=== PATIENT | female | born 1985 | race Caucasian/White ===

== ENCOUNTER 2024-02-29 20:30 | Emergency (ER) | payer MEDICAID, SELFPAY ==
[2024-02-29 20:31] VITALS: BMI 28.3
[2024-02-29 21:05] VITALS: BP 131/84; PULSE 102; RESP 17; TEMP 37.4; O2SAT 100
--- NOTE | 2024-02-29 21:17 | PD.EDRME ---
Rapid Medical Screening Exam [facility] Arrival date/time: 02/29/24 20:30 38F with no significant PMH Presents to ED with 1.5 week of UTI symptoms and several days of body aches and flank/back pain. Patient was started on Keflex yesterday. Chief Complaint: Urogenital-Female Vital signs: Vital Signs Temperature 99.3 F 02/29/24 21:05 Pulse Rate 102 H 02/29/24 21:05 Respiratory Rate 17 02/29/24 21:05 Blood Pressure 131/84 H 02/29/24 21:05 Pulse Oximetry (%) 100 02/29/24 21:05 Oxygen Delivery Method Room Air 02/29/24 21:05
[2024-02-29 21:40] LABS: Collection Type, Urine Clean Catch
[2024-02-29 21:41] LABS: Lactate (Lactic Acid) 0.5 mMol/L (0.4-2.0)
[2024-02-29 21:42] LABS: Basophils % (Auto) 0 % (0-2.5); Eosinophils # (Auto) 0.1 Thou/mm3 (0.0-0.5); Eosinophils % (Auto) 1 % (0-10); Hematocrit 42.2 % (36.0-46.0); Hemoglobin 14.4 g/dL (12.0-16.0); Immature Granulocytes % (Auto) 0 % (0-0); Immature Granulocytes Auto 0.03 Thou/mm3 (0.00-0.00); Lymphocytes # (Auto) 2.5 Thou/mm3 (1.0-4.8); Lymphocytes % (Auto) 26 % (10-50); Mean Corpuscular HGB Conc 34.1 g/dl (31.0-37.0); Mean Corpuscular Hemoglobin 31.8 pg (25.0-35.0); Mean Corpuscular Volume 93 fL (80-100); Monocytes # (Auto) 0.7 Thou/mm3 (0.0-0.8); Monocytes % (Auto) 7 % (0-12); Neutrophils # (Auto) 6.1 Thou/mm3 (1.8-7.7); Neutrophils % (Auto) 65 % (37-80); Nucleated Red Blood Cell % 0 /100 WBC (0); Platelet Count 220 Thou/mm3 (140-440); RDW Standard Deviation 42.7 fL (36.4-46.3); Red Blood Count 4.53 Miln/mm3 (4.00-5.20); White Blood Count 9.4 Thou/mm3 (3.6-11.0)
[2024-02-29 21:45] LABS: Bacteria,Urine Rare; Bilirubin,Urine 1+ (Negative); Blood,Urine Negative (Negative); Clarity,Urine Clear (Clear/Hazy); Color,Urine Drk-Yellow (Lt Yel-Yel); Glucose, Urine Negative (Negative); Ketones,Urine Negative (Negative); Leukocyte Esterase,Urine Positive (Negative); Nitrite,Urine Positive (Negative); PH,Urine 7.5 (5.0-7.0); Protein,Urine Negative (Neg - Trace); RBC,Urine 1 /hpf (0-3); Specific Gravity,Urine 1.014 (1.001-1.035); Squamous Epithelial Cell,Urine 3 /hpf (0-5); WBC,Urine 14 /hpf (0-5)
[2024-02-29 21:46] LABS: HCG Qualitative,Urine Negative
[2024-02-29 21:47] LABS: Culture Indicated,Urine Yes
[2024-02-29 22:13] LABS: Alanine Aminotransferase 23 U/L (10-49); Albumin, Serum 4.3 gm/dL (3.5-5.0); Albumin/Globulin Ratio 1.9 (1.2-2.2); Alkaline Phosphatase 63 U/L (46-116); Anion Gap 5 (7-16); Aspartate Amino Transferase 26 U/L (0-34); BUN/Creatinine Ratio 15 Ratio (12-20); Bilirubin,Total 0.5 mg/dL (0.3-1.2); Blood Urea Nitrogen 12 mg/dL (9-23); Calcium 9.5 mg/dL (8.3-10.6); Calcium (Corrected) 9.5 mg/dL (8.5-10.1); Carbon Dioxide 28.3 mMol/L (20.0-31.0); Chloride 106 mMol/L (98-107); Creatinine (Component) 0.8 mg/dL (0.6-1.3); Estimated Creatinine Clearance 89.2 mL/min (>60); Globulin 2.3 gm/dL (2.3-3.5); Glucose 94 mg/dL (74-106); Osmolality,Calculated 277 (275-295); Procalcitonin 0.06 ng/ml (0.0-0.49); Sodium 139 mMol/L (136-145); Total Protein 6.6 gm/dL (5.7-8.2); eGFR > 60 See Note
--- NOTE | 2024-02-29 23:18 | PD.EDFMALE ---
ED Female Urogenital RME/HPI General Chief complaint: Urogenital-Female Stated complaint: UTI SYMPTOMS Arrival date/time: 02/29/24 20:30 RME / HPI RME / HPI Narrative: 02/29/24 20:30 38F with no significant PMH Presents to ED with 1.5 week of UTI symptoms and several days of body aches and flank/back pain. Patient was started on Keflex yesterday. ----- Dr. Quezada?s Main ED Evaluation: Related Data Home Medications ?Medication ?Instructions ?Recorded ?Confirmed gabapentin 800 mg tablet 800 mg PO TID 05/21/23 Previous Rx's ?Medication ?Instructions ?Recorded medroxyprogesterone 10 mg tablet 10 mg PO QDAY #7 tabs 09/18/23 (Provera) benzonatate 100 mg capsule 100 mg PO TID #14 caps 10/30/23 ibuprofen 600 mg tablet 600 mg PO Q6H #30 tabs 10/30/23 Allergies Allergy/AdvReac Type Severity Reaction Status Date / Time Sulfa (Sulfonamide Allergy Severe Hives Verified 10/30/23 14:18 Antibiotics) Review of Systems Review of Systems Systems Reviewed: All systems reviewed, normal except as documented Past Medical History Past Medical History NEUROLOGIC: Positive Neurological Disorders and Migraine CARDIAC: Negative Cardiac Disorders or Congestive Heart Failure RESPIRATORY: Negative Chronic Obstructive Pulmonary Disease (COPD) GASTROINTESTINAL: Positive Gastrointestinal Disorders and Obesity GENITOURINARY: Negative Genitourinary Disorders or Renal Disease REPRODUCTIVE: Positive Previous Pregnancies MUSCULOSKELETAL: Negative Musculoskeletal Disorders ENDOCRINE: Negative Endocrine Disorders, Diabetes Mellitus Type 1 or Diabetes Mellitus Type 2 HEMATOLOGIC: Negative Blood Disorders PSYCHO/SOCIAL: Positive Recreational Drug Use OTHER HISTORY: Positive Hospitalization (acute kidney problems), Shingles and Chicken Pox; Negative Blood Transfusions or Cancer Family History FAMILY HISTORY: Positive Family Cancer; Negative Family Psychiatric Problems, Family Respiratory Disorders, Family Cardiac Disorders, Family Gastrointestinal Problems, Family Surgery or Family Anesthesia Reaction Social History SMOKING STATUS: Current every day smoker ED Exam Narrative Physical exam: GENERAL APPEARANCE: alert and oriented x 4, well-developed, well-nourished, no acute distress VITALS: All vitals were reviewed and the pulse ox is 100% on room air, which is normal according to my interpretation. HEENT: Normocephalic, atraumatic; pupils equal, round, reactive to light; EOMI; mucous membranes pink, moist; oropharynx clear NECK: Supple LUNGS: CTABL; no wheezes, no rales, no rhonchi HEART: Regular rate, regular rhythm; normal S1, S2; no murmurs ABDOMEN: non distended; normal BS; soft, no tenderness, no guarding, no rebound; no masses, no organomegaly, no hernia BACK: no CVA tenderness EXTREMITIES: atraumatic; no edema NEUROLOGIC: awake; alert and oriented x4; cranial nerves II-XII grossly intact; no focal sensory or motor deficits PSYCHIATRIC: appropriate mood and affect SKIN: warm, dry, normal color; no rashes Course Quality Measures none Orders Category Date Time Status CBC Stat Lab 02/29/24 21:25 Completed CMP [Comprehensive Metabolic Panel] Stat Lab 02/29/24 21:25 Completed HCG Qualitative,Urine Stat Lab 02/29/24 21:30 Completed Lactate (Lactic Acid) Stat Lab 02/29/24 21:25 Completed Procalcitonin Stat Lab 02/29/24 21:25 Completed Urinalysis, C/S if Indicated Stat Lab 02/29/24 21:30 Completed Urine Culture Stat Lab 02/29/24 21:30 Received Vital Signs Vital signs: Vital Signs Temperature 99.3 F 02/29/24 21:05 Pulse Rate 102 H 02/29/24 21:05 Respiratory Rate 17 02/29/24 21:05 Blood Pressure 131/84 H 02/29/24 21:05 Pulse Oximetry (%) 100 02/29/24 21:05 Oxygen Delivery Method Room Air 02/29/24 21:05 Urogenital - Female Patient data External records reviewed:: [facility] previous records (Per chart review, patient was seen here on 10/30/23 for COVID.) Clinical information provided by:: patient Social determinants that could affect healthcare access:: none Patient has the following chronic illnesses:: none How is presenting disease/condition affected by chronic disease/condition?: no chronic disease Evaluation data The following diagnostics were reviewed and interpreted by me:: lab results Lab and/or radiology exams considered but not ordered:: none Interpretation Summary: CBC is normal, CMP is normal, Lactate is normal, Procalcitonin is normal, UA is positive, according to my interpretation. Medications / Prescriptions Medications or Prescriptions considered but not ordered:: none Medication administrations:: see above, if any Discharge Plan Prescriptions/Referrals Prescriptions/Med Rec: No Action gabapentin 800 mg tablet 800 mg PO TID Patient Comments: take 1 tablet by mouth three times a day medroxyprogesterone [Provera] 10 mg tablet 10 mg PO QDAY Qty: 7 0RF benzonatate 100 mg capsule 100 mg PO TID Qty: 14 0RF ibuprofen 600 mg tablet 600 mg PO Q6H Qty: 30 0RF Referrals: Orsetes Wilson MD [Primary Care Provider] - In 1 week Patient/Caregiver Discharge Instructions Print Language: Grenadian
--- NOTE | 2024-03-01 00:09 | EDNOTE_ITS ---
ED Female Urogenital RME/HPI General Chief complaint: Urogenital-Female Stated complaint: UTI SYMPTOMS Time Seen by Provider: 03/01/24 00:21 Arrival date/time: 02/29/24 20:30 38F with no significant PMH Presents to ED with 1.5 week of UTI symptoms and several days of body aches and flank/back pain. Patient was started on Keflex yesterday. Limitations: no limitations Related Data Home Medications ?Medication ?Instructions ?Recorded ?Confirmed gabapentin 800 mg tablet 800 mg PO TID 05/21/23 Previous Rx's ?Medication ?Instructions ?Recorded medroxyprogesterone 10 mg tablet 10 mg PO QDAY #7 tabs 09/18/23 (Provera) benzonatate 100 mg capsule 100 mg PO TID #14 caps 10/30/23 ibuprofen 600 mg tablet 600 mg PO Q6H #30 tabs 10/30/23 Allergies Allergy/AdvReac Type Severity Reaction Status Date / Time Sulfa (Sulfonamide Allergy Severe Hives Verified 10/30/23 14:18 Antibiotics) Review of Systems Review of Systems Systems Reviewed: All systems reviewed, normal except as documented Constitutional Constitutional: Reports system reviewed and no additional complaints, except as documented, Reports as per HPI, Reports body ache(s), Denies fever(s) and Denies headache(s) ENT Ears, Nose, Mouth, and Throat: Denies disequilibrium and Denies headache(s) Cardiovascular Cardiovascular: Reports system reviewed and no additional complaints, except as documented, Denies chest pain and Denies dyspnea Respiratory Respiratory: Reports system reviewed and no additional complaints, except as documented, Denies cough and Denies dyspnea Gastrointestinal Gastrointestinal: Reports system reviewed and no additional complaints, except as documented, Denies abdominal pain, Denies nausea and Denies vomiting Genitourinary Genitourinary: Reports as per HPI, Reports dysuria and Reports flank pain Neurologic Neurologic: Reports system reviewed and no additional complaints, except as documented, Denies confusion, Denies disequilibrium and Denies headache(s) Psychiatric Psychiatric: Denies confusion Past Medical History Past Medical History NEUROLOGIC: Positive Neurological Disorders and Migraine CARDIAC: Negative Cardiac Disorders or Congestive Heart Failure RESPIRATORY: Negative Chronic Obstructive Pulmonary Disease (COPD) GASTROINTESTINAL: Positive Gastrointestinal Disorders and Obesity GENITOURINARY: Negative Genitourinary Disorders or Renal Disease REPRODUCTIVE: Positive Previous Pregnancies MUSCULOSKELETAL: Negative Musculoskeletal Disorders ENDOCRINE: Negative Endocrine Disorders, Diabetes Mellitus Type 1 or Diabetes Mellitus Type 2 HEMATOLOGIC: Negative Blood Disorders PSYCHO/SOCIAL: Positive Recreational Drug Use OTHER HISTORY: Positive Hospitalization (acute kidney problems), Shingles and Chicken Pox; Negative Blood Transfusions or Cancer Family History FAMILY HISTORY: Positive Family Cancer; Negative Family Psychiatric Problems, Family Respiratory Disorders, Family Cardiac Disorders, Family Gastrointestinal Problems, Family Surgery or Family Anesthesia Reaction Social History SMOKING STATUS: Current every day smoker ED Exam General Limitations: Present no limitations General appearance: Present alert and in no apparent distress Head Head exam: Present atraumatic Eye Eye exam: Present normal appearance, PERRL and EOMI ENT ENT exam: Present normal exam, normal oropharynx and mucous membranes moist Neck Neck exam: Present normal inspection, full ROM and trachea midline Chest Chest inspection: Present normal inspection and symmetric chest wall rise Respiratory Respiratory exam: Present normal lung sounds bilaterally Cardiovascular Cardiovascular exam: Present regular rate, normal rhythm and normal heart sounds Abdominal Exam Abdominal exam: Present soft and normal bowel sounds Extremities Exam Extremities exam: Present normal inspection and full ROM Back Exam Back exam: Present normal inspection and full ROM Neurological Exam Neurological exam: Present alert, oriented X3 and CN II-XII intact Psychiatric Psychiatric exam: Present normal affect and normal mood Skin Skin exam: Present warm, dry, intact and normal color Course Quality Measures none Orders Category Date Time Status CBC Stat Lab 02/29/24 21:25 Completed CMP [Comprehensive Metabolic Panel] Stat Lab 02/29/24 21:25 Completed HCG Qualitative,Urine Stat Lab 02/29/24 21:30 Completed Lactate (Lactic Acid) Stat Lab 02/29/24 21:25 Completed Procalcitonin Stat Lab 02/29/24 21:25 Completed Urinalysis, C/S if Indicated Stat Lab 02/29/24 21:30 Completed Urine Culture Stat Lab 02/29/24 21:30 Received Naproxen [Naprosyn] Med 03/01/24 00:08 Discontinued 500 mg PO X1 ONE cefTRIAXone [Rocephin] 1,000 mg Med 03/01/24 00:08 Discontinued Lidocaine 1% 20 ml [Xylocaine 1% 20 ML] 2.1 ml IM X1 Vital Signs Vital signs: Vital Signs Temperature 99.3 F 02/29/24 21:05 Pulse Rate 102 H 02/29/24 21:05 Respiratory Rate 17 02/29/24 21:05 Blood Pressure 131/84 H 02/29/24 21:05 Pulse Oximetry (%) 100 02/29/24 21:05 Oxygen Delivery Method Room Air 02/29/24 21:05 O2 at 100% on RA and WNLs Urogenital - Female MDM Narrative MDM Narrative:: 38F with no significant PMH Presents to ED with 1.5 week of UTI symptoms and several days of body aches and flank/back pain. Patient was started on Keflex yesterday. Physical exam reveals no flank tenderness. Patient is afebrile, calm, and alert. No leukocytosis. Normal procal/lactate. UA suggests mild UTI. Will reinforce with Rocephin. Patient data External records reviewed:: [facility] previous records Clinical information provided by:: patient Social determinants that could affect healthcare access:: none Patient has the following chronic illnesses:: none How is presenting disease/condition affected by chronic disease/condition?: no chronic disease Evaluation data The following diagnostics were reviewed and interpreted by me:: lab results Lab and/or radiology exams considered but not ordered:: ordered Interpretation Summary: above Medications / Prescriptions Medications or Prescriptions considered but not ordered:: ordered Medication administrations:: Medication Administration History Discontinued Medications Ceftriaxone Sodium 1,000 mg/ (Lidocaine HCl 2.1 ml) 0 mg IM X1 ONE Stop: 03/01/24 00:09 Last Admin: 03/01/24 00:21 Dose: 2.1 mg Documented By: DLEANEY Naproxen (Naproxen 250 Mg Tablet) 500 mg PO X1 ONE Stop: 03/01/24 00:09 Last Admin: 03/01/24 00:20 Dose: 500 mg Documented By: DELANEY above Consultations Consultation(s) initiated? (list below): No Diagnosis Urogenital Female Differential Diagnosis: urinary tract infection, bacterial vaginosis, trichomoniasis, cervicitis, ovarian cyst, vaginitis, ruptured ovarian cyst, cyst of Bartholin's gland, cystitis and dysmenorrhea Most likely diagnosis given after review of the tests above:: UTI Admission Indicated Admission indicated?: not indicated Admission Request Was there a request for admission?: No Disposition Plan Disposition Plan: Discharge Discharge Attestation Discharge Attestation: The patient and all family members were given an opportunity to ask questions and understood the discharge instructions. Discharge instructions specifically effects, indications for sooner follow up or return to the emergency department, and the expected course of current diagnosis. Patient condition: Stable Discharge Plan Plan Patient Disposition: HOME (Self Care) Disposition Comment: Stable Prescriptions/Referrals Prescriptions/Med Rec: No Action gabapentin 800 mg tablet 800 mg PO TID Patient Comments: take 1 tablet by mouth three times a day medroxyprogesterone [Provera] 10 mg tablet 10 mg PO QDAY Qty: 7 0RF benzonatate 100 mg capsule 100 mg PO TID Qty: 14 0RF ibuprofen 600 mg tablet 600 mg PO Q6H Qty: 30 0RF Referrals: Orestes Wilson MD [Primary Care Provider] - In 1 week Problem List Clinical Impression: UTI (urinary tract infection) Patient/Caregiver Discharge Instructions Additional Instructions: Please follow-up with PCP within 24-48 hours and return immediately if symptoms worsen. Finish Keflex. 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 Quezada
[2024-03-01] MEDS: NAPROXEN 250 MG TABLET 500 MG PO (00:20)
[2024-03-01] MEDS: cefTRIAXone 1,000 MG, LIDOCAINE 1% 20 ML 2.1 ML IM (00:21)
[2024-03-01 00:26] VITALS: BP 128/79; PULSE 99; RESP 18; TEMP 37.2; O2SAT 99
== END 2024-03-01 00:26 | disposition home or self-care (01) ==
PROVIDERS: Physician Assistant; Emergency Provider Emergency Medicine; PCP Family Medicine
DX: N39.0 Urinary tract infection, site not specified (principal)
CPT/HCPCS: 36415; 80053; 81001; 81025; 83605; 84145; 85025; 87086; 96372; 99283; J0696; J3490; A9270

== ENCOUNTER 2024-08-14 13:11 | Emergency (ER) | payer MEDICAID, SELFPAY ==
[2024-08-14 13:27] VITALS: BP 103/71; PULSE 118; RESP 20; TEMP 37.2; O2SAT 99
--- NOTE | 2024-08-14 13:32 | PD.EDRME ---
Rapid Medical Screening Exam RME Arrival date/time: 08/14/24 13:11 39-year-old female with no known medical history presents to the emergency room with a chief complaint of right lower and left lower quadrant abdominal pain and tenderness, nausea, vomiting x 2 days I have greeted and performed a focused initial assessment of this patient. A comprehensive ED assessment and evaluation of the patient, analysis of all test results, and completion of the medical decision making process will be conducted by additional ED providers. Chief Complaint: Nausea/Vomiting/Diarrhea Vital signs: Vital Signs Temperature 98.9 F 08/14/24 13:27 Pulse Rate 118 H 08/14/24 13:27 Respiratory Rate 20 08/14/24 13:27 Blood Pressure 103/71 08/14/24 13:27 Pulse Oximetry (%) 99 08/14/24 13:27 Oxygen Delivery Method Room Air 08/14/24 13:27 Vital signs reviewed by provider: Yes
[2024-08-14] MEDS: ONDANSETRON ODT 4 MG TABRAP PO (13:38)
[2024-08-14 14:23] LABS: Basophils % (Auto) 0 % (0-2.5); Eosinophils % (Auto) 0 % (0-10); Hematocrit 44.4 % (36.0-46.0); Hemoglobin 15.8 g/dL (12.0-16.0); Immature Granulocytes % (Auto) 0 % (0-0); Immature Granulocytes Auto 0.03 Thou/mm3 (0.00-0.00); Lymphocytes # (Auto) 0.5 Thou/mm3 (1.0-4.8); Lymphocytes % (Auto) 5 % (10-50); Mean Corpuscular HGB Conc 35.6 g/dl (31.0-37.0); Mean Corpuscular Hemoglobin 33.3 pg (25.0-35.0); Mean Corpuscular Volume 94 fL (80-100); Monocytes # (Auto) 0.2 Thou/mm3 (0.0-0.8); Monocytes % (Auto) 2 % (0-12); Neutrophils % (Auto) 94 % (37-80); Nucleated Red Blood Cell % 0 /100 WBC (0); Platelet Count 184 Thou/mm3 (140-440); RDW Standard Deviation 41.8 fL (36.4-46.3); Red Blood Count 4.74 Miln/mm3 (4.00-5.20); White Blood Count 10.7 Thou/mm3 (3.6-11.0)
[2024-08-14 14:31] LABS: Alanine Aminotransferase 20 U/L (10-49); Albumin, Serum 4.5 gm/dL (3.5-5.0); Albumin/Globulin Ratio 1.9 (1.2-2.2); Alkaline Phosphatase 43 U/L (46-116); Anion Gap 9 (7-16); Aspartate Amino Transferase 28 U/L (0-34); BUN/Creatinine Ratio 26 Ratio (12-20); Bilirubin,Total 1.1 mg/dL (0.3-1.2); Blood Urea Nitrogen 21 mg/dL (9-23); Calcium 8.7 mg/dL (8.3-10.6); Calcium (Corrected) 8.7 mg/dL (8.5-10.1); Carbon Dioxide 25.3 mMol/L (20.0-31.0); Chloride 107 mMol/L (98-107); Creatinine (Component) 0.8 mg/dL (0.6-1.3); Estimated Creatinine Clearance 85.4 mL/min (>60); Globulin 2.4 gm/dL (2.3-3.5); Glucose 126 mg/dL (74-106); Lipase 29 U/L (12-53); Osmolality,Calculated 286 (275-295); Sodium 141 mMol/L (136-145); Total Protein 6.9 gm/dL (5.7-8.2); eGFR > 60 See Note
[2024-08-14 15:35] LABS: Collection Type, Urine Clean Catch
[2024-08-14 15:51] LABS: Bilirubin,Urine Negative (Negative); Blood,Urine 1+ (Negative); Clarity,Urine Clear (Clear/Hazy); Color,Urine Yellow (Lt Yel-Yel); Glucose, Urine Negative (Negative); Ketones,Urine Trace (Negative); Leukocyte Esterase,Urine Positive (Negative); Nitrite,Urine Negative (Negative); Protein,Urine Trace (Neg - Trace); RBC,Urine 5 /hpf (0-3); Specific Gravity,Urine 1.037 (1.001-1.035); Squamous Epithelial Cell,Urine 5 /hpf (0-5); Urobilinogen,Urine Negative mg/dL (0.0-1.0); WBC,Urine 3 /hpf (0-5)
[2024-08-14 15:56] LABS: HCG Qualitative,Urine Negative
--- NOTE | 2024-08-14 18:05 | PC.NURSE ---
Called patient did not answer. NA X1@ 18:00
--- NOTE | 2024-08-14 18:09 | PC.NURSE ---
PT CALLED FROM [facility] AND NO ANSWER. 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
== END 2024-08-14 18:10 | disposition left against medical advice (07) ==
PROVIDERS: Nurse Practitioner Family; Emergency Provider Emergency Medicine; PCP Family Medicine
DX: R10.32 Left lower quadrant pain (principal); R11.2 Nausea with vomiting, unspecified; R19.7 Diarrhea, unspecified; Z53.29 Procedure and treatment not carried out because of patient's decision for other reasons
CPT/HCPCS: 36415; 80053; 81001; 81025; 83690; 85025; 87086; 99284; Q0162

== ENCOUNTER 2024-10-31 10:44 | Outpatient (AMB) | payer MEDICAID, SELFPAY ==
[2024-10-31 11:23] VITALS: BP 112/74; PULSE 66; RESP 17; TEMP 37; O2SAT 98; BMI 23.3
--- NOTE | 2024-10-31 11:23 | AMB.GYNCLNOT ---
Vital Signs 10/31/24 11:23 Height 1.65 m Height Method Stated Weight 63.503 kg Weight Measurement Method Standing Scale BMI 23.3 BP 112/74 Blood Pressure Source Automatic Cuff Blood Pressure Location Right Upper Arm Position Sitting Respiration 17 Pulse 66 Pulse Source Monitor Temp 98.6 F Temp Source Temporal Artery Scan Pulse Oximetry (%) 98 Oxygen Delivery Method Room Air Allergies/Home Meds Allergies & Medications Allergies Sulfa (Sulfonamide Antibiotics) Allergy (Severe, Verified 10/31/24 11:24) Hives Medication Reconciliation gabapentin 800 mg tablet 800 mg PO TID 05/21/23 [History Confirmed 10/31/24] medroxyprogesterone 10 mg tablet (Provera) 10 mg PO QDAY #7 tabs 09/18/23 [Rx Confirmed 10/31/24] benzonatate 100 mg capsule 100 mg PO TID #14 caps 10/30/23 [Rx Confirmed 10/31/24] ibuprofen 600 mg tablet 600 mg PO Q6H #30 tabs 10/30/23 [Rx Confirmed 10/31/24] amoxicillin 875 mg-potassium clavulanate 125 mg tablet 1 tab PO BID 7 days #14 tabs 10/31/24 [Rx] Intake Visit Data Collection New Patient or Established: Established Patient (seen at [facility] within 3 years) Reason for Visit:: REFERRAL Seen by Clinical Staff ONLY (RN/MA): No Legal Word Processor Required: No Do You Feel Safe at Home: Yes Authorities Contacted: N/A PCP or OBGYN visit in last 3 months: Yes Date of Last PCP or OBGYN visit: 08/14/24 Hx Now: No Are you currently on any form of Control: Yes Pain Present Currently: No Pain Scale Used: Gipson-Gomez/Numerical Pain scale:: 0 Smoking Status Smoking Status: Current every day smoker Cessation Counseling Provided: TRICE was advised that quitting smoking is the single most important factor to protect the health of themselves and their family. Discussed the benefits of quitting smoking with patient. Encouraged patient to quit smoking and provided Cessation assistance materials and resources. 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 1. Little interest or pleasure in doing things: not at all 2. Feeling down, depressed, or hopeless: not at all Total score: 0 PHQ-9 3. Trouble falling or staying asleep, or sleeping too much: Not at all 4. Feeling tired or having little energy: Not at all 5. Poor appetite or overeating: Not at all 6. Feeling bad about yourself - or that you are a failure or have let yourself or your family down: Not at all 7. Trouble concentrating on things, such as reading the newspaper or watching television: Not at all 8. Moving or speaking so slowly that other people could have noticed? - Or the opposite - being so fidgety or restless that you have been moving around a lot more than usual: not at all 9. Thoughts that you would be better off or of hurting yourself in some way: Not at all Total score: 0 If you checked off any problems, how difficult have these problems made it for you to do your work, take care of things at home, or get along with other people?: not difficult at all Source: Developed by Drs. Beto Simmons, Imani Mcwilliams, Chaka Casper and colleagues, with an educational cindi from [employer]. Depression screen completed yes Social History Living Situation History Marital Status: Unknown Lives With: Family Housing: House Tobacco History Smoking Status: Current every day smoker Second Hand Smoke Exposure: No Alcohol History Alcohol Intake: Former Domestic Abuse History Do You Feel Safe at Home: Yes History of Present Illness HPI Narrative Trice Grigsby is a 39-year-old female presenting for an endometriosis consultation, referred by [facility]. She reports severe uterine cramping and heavy menstrual bleeding for the past 3-4 years. The patient describes her pain as feeling like contractions, stating it's super bad and feels like she's having a baby. This pain has been present for more than 5 years but has worsened in the last 3-4 years. Prior to treatment, she experienced heavy menstrual bleeding, describing it as gushing with large clots, lasting 9-10 days. Trice has tried various treatments including control, which helped reduce bleeding but did not eliminate it entirely, and Depo-Provera injections, which stopped her menstrual bleeding but did not alleviate the cramping. The patient is [id number], with all five children delivered vaginally. She denies any previous uterine surgeries. Triec expresses concern about the impact of her symptoms on her daily life, mentioning she has young children and can't afford significant downtime. Recently, Trice was prescribed letrozole to induce menopause, but she has not started it, preferring to seek a second opinion first. She also mentions occasionally experiencing a burning sensation when urinating, along with an unusual odor. Her medical history includes endometriosis with worsening symptoms over the last three to four years, and a borderline urinary tract infection diagnosed during the current visit. Social history reveals she has a boyfriend and young children at home. Review of systems is positive for severe pain, heavy menstrual bleeding (though not currently), large blood clots, severe uterine cramping, and pelvic pain. Review of Systems Review of Systems Systems Reviewed: All systems reviewed, normal except as documented Exam General General Appearance: alert, in no apparent distress and healthy appearing Head Head exam: atraumatic Neck Neck exam: Present normal inspection and trachea midline Chest Chest inspection: Present normal inspection and symmetric chest wall rise External exam: Present normal external exam; Absent tenderness Neuro Neurological exam: Present oriented X3 Psych Psychiatric exam: Present normal affect and normal mood Office Procedures OB Clinic LOC & Office Proc's Nursing/Assessment Patient Status: Established Patient OB Clinic Nursing Assessment: Medication Reconciliation, Update PMH in EMR and Vital Signs OB Clinic Coordination of Care: Complex Care and Chronic Disease 1-5, Consent,records obtained, informed consent, Education Simp Pt/Fam, Results/Orders obtained and Staff clarify orders Established Patient Charge Established Patient Point Assignment: 90 Established Patient Point Charge: EP Level 3 (80-115) Assessment & Plan Diagnosis / Problem List (1) Pelvic and perineal pain: Status: Acute (2) Endometriosis: Status: Acute (3) Abnormal uterine and vaginal bleeding, unspecified: Status: Acute Plan Endometriosis: - Reviewed patient's 5-year history of endometriosis with worsening symptoms. - Noted severe uterine cramping, heavy menstrual bleeding lasting 9-10 days with large clots, and persistent pain despite current treatments. - Plan to obtain and review recent ultrasound results from [facility]. - Provided information on Lupron injections and alternative treatments. - Discussed potential treatment options including Lupron injections and laparoscopic surgery with endometrial ablation. - Recommended combination approach: 1-2 months of Lupron, followed by surgery, then continue Lupron to complete 2-year course. - Scheduled follow-up in 2 weeks to review options and make decision. - Discussed risks, benefits, and alternatives of proposed treatments. Urinary Tract Infection (UTI): - Noted patient reports of intermittent urinary odor and burning sensation. - Reviewed urinalysis showing borderline infection. - Prescribed low-dose antibiotic course. - Sent prescription to [facility] pharmacy. - Advised patient to monitor for correlation between diet and urinary symptoms. - Recommended increased fluid intake.
== END 2024-10-31 11:38 | disposition home or self-care (01) ==
LOC: HODSOBC 10:44
PROVIDERS: PCP Family Medicine; Referring Provider Family Medicine; Supervising Provider Obstetrics & Gynecology; Visit Provider Obstetrics & Gynecology
DX: N80.9 Endometriosis, unspecified (principal); N93.9 Abnormal uterine and vaginal bleeding, unspecified; N39.0 Urinary tract infection, site not specified
CPT/HCPCS: 99213; G0463

== ENCOUNTER 2025-03-23 12:35 | Emergency (ER) | payer MEDICAID, SELFPAY ==
[2025-03-23 13:39] VITALS: BP 128/85; PULSE 72; RESP 18; TEMP 36.8; O2SAT 100; BMI 27.1
--- NOTE | 2025-03-23 13:49 | PD.EDURI ---
Upper Respiratory Inf. RME/HPI General Chief Complaint: Flu Like Symptoms Stated Complaint: FLU A +, BILATERAL FLANK PAIN, FEVERS X 5DAYS Time Seen by Provider: 03/23/25 13:00 Arrival date/time: 03/23/25 12:35 This is a 39-year-old female that comes into the emergency room with complaints of being positive for influenza A. Patient states she still has fevers and she is not does not have much of an appetite and not eating and drinking as much as she usually does. Patient is also complaining of bilateral back pain patient also complains of urinary symptoms such as dysuria. Related Data Home Medications ?Medication ?Instructions ?Recorded ?Confirmed gabapentin 800 mg tablet 800 mg PO TID 05/21/23 10/31/24 Previous Rx's ?Medication ?Instructions ?Recorded medroxyprogesterone 10 mg tablet 10 mg PO QDAY #7 tabs 09/18/23 (Provera) benzonatate 100 mg capsule 100 mg PO TID #14 caps 10/30/23 ibuprofen 600 mg tablet 600 mg PO Q6H #30 tabs 10/30/23 ibuprofen 800 mg tablet 800 mg PO Q6H PRN pain #14 tabs 03/23/25 Allergies Allergy/AdvReac Type Severity Reaction Status Date / Time Sulfa (Sulfonamide Allergy Severe Hives Verified 04/02/25 13:38 Antibiotics) Review of Systems Review of Systems Systems Reviewed: All systems reviewed, normal except as documented Past Medical History Past Medical History NEUROLOGIC: Positive Neurological Disorders and Migraine CARDIAC: Negative Cardiac Disorders or Congestive Heart Failure RESPIRATORY: Negative Chronic Obstructive Pulmonary Disease (COPD) GASTROINTESTINAL: Positive Gastrointestinal Disorders and Obesity GENITOURINARY: Negative Genitourinary Disorders or Renal Disease REPRODUCTIVE: Positive Previous Pregnancies MUSCULOSKELETAL: Negative Musculoskeletal Disorders ENDOCRINE: Negative Endocrine Disorders, Diabetes Mellitus Type 1 or Diabetes Mellitus Type 2 HEMATOLOGIC: Negative Blood Disorders PSYCHO/SOCIAL: Positive Recreational Drug Use OTHER HISTORY: Positive Hospitalization (acute kidney problems), Shingles and Chicken Pox; Negative Blood Transfusions or Cancer Family History FAMILY HISTORY: Positive Family Cancer; Negative Family Psychiatric Problems, Family Respiratory Disorders, Family Cardiac Disorders, Family Gastrointestinal Problems, Family Surgery or Family Anesthesia Reaction Social History SMOKING STATUS: Current every day smoker ED Exam Narrative Physical exam: VITAL SIGNS: Reviewed. GENERAL APPEARANCE: Alert and interactive, follows commands, no acute distress HEAD AND FACE: Non-traumatic. ENT: PERRL, conjuctiva pink and clear, eyelid no trauma, Mucous membrane moist. NECK: Supple, nontender, no nuchal rigidity. CHEST: No tenderness, no crepitus, no paradoxical movement, no retractions. LUNGS: breathing even and unlabored HEART: Regular rate, cap refill less than 2 seconds ABDOMEN: Soft, nondistended, no guarding, nontender NEUROLOGICAL: Gross motor function intact sensory function intact, Appropriate for age. MUSCULOSKELETAL: low back nontender, full range of motion. EXTREMITIES: No redness no swelling no skin breakdown on bilateral foot and leg. Distal neurovascular status intact bilateral foot SKIN: Color pink, dry Course Quality Measures none Orders Category Date Time Status HCG Qualitative,Urine Stat Lab 03/23/25 14:35 Completed Urinalysis, C/S if Indicated Stat Lab 03/23/25 14:35 Completed Urine Culture Stat Lab 03/23/25 14:35 Completed Acetaminophen Tab [Tylenol ES Tab] Med 03/23/25 15:19 Discontinued 1,000 mg PO X1 ONE Ketorolac Inj [Toradol Inj] Med 03/23/25 17:06 Discontinued 60 mg IM X1 ONE Metoclopramide [Reglan] Med 03/23/25 17:06 Discontinued 10 mg PO X1 ONE Ondansetron Odt [Zofran Odt] Med 03/23/25 15:20 Discontinued 4 mg PO X1 ONE cefTRIAXone [Rocephin] 1,000 mg Med 03/23/25 17:06 Discontinued Lidocaine 1% Pf Vial 5ml [Xylocaine 1% Pf 5 ml] 2.1 ml IM X1 Vital Signs Vital signs: Vital Signs Temperature 98.2 F 03/23/25 13:39 Pulse Rate 72 03/23/25 13:39 Respiratory Rate 18 03/23/25 13:39 Blood Pressure 128/85 H 03/23/25 13:39 Pulse Oximetry (%) 100 03/23/25 13:39 Oxygen Delivery Method Room Air 03/23/25 13:39 Upper Respiratory Infection MDM Narrative MDM Narrative:: Patient complaining of urinary symptoms along with bodyaches. Patient has nitrites in urine patient has white blood cells in urine but does not have leukocyte esterase. Will treat for UTI and send for urine culture. Patient given a shot of Rocephin. Will give patient also shot of Toradol with some Reglan. Patient continues to have body aches. I will send patient home with antibiotics and have patient follow-up with primary provider in 1 to 2 days. Dragon dictation: Although this document has been carefully reviewed, there may still be some phonetic and other typographical errors. These errors are purely grammatical due to imperfections in the software program and should not be construed in any way to compromise the substance of the patient's medical care during this visit. Patient data External records reviewed:: [facility] previous records Clinical information provided by:: patient Social determinants that could affect healthcare access:: none Patient has the following chronic illnesses:: see note How is presenting disease/condition affected by chronic disease/condition?: no chronic disease Evaluation data The following diagnostics were reviewed and interpreted by me:: lab results Lab and/or radiology exams considered but not ordered:: see note Interpretation Summary: see note Medications / Prescriptions Medications or Prescriptions considered but not ordered:: see note Medication administrations:: Medication Administration History Discontinued Medications Acetaminophen (Acetaminophen 500 Mg Tablet) 1,000 mg PO X1 ONE Stop: 03/23/25 15:20 Last Admin: 03/23/25 16:29 Dose: 1,000 mg Documented By: RAVINDRA Comments: med brought by pharmacy Ceftriaxone Sodium 1,000 mg/ (Lidocaine HCl 2.1 ml) 0 mg IM X1 ONE Stop: 03/23/25 17:07 Last Admin: 03/23/25 17:21 Dose: 1,000 mg Documented By: RAVINDRA Ketorolac Tromethamine (Ketorolac Inj 60 Mg/2 Ml Vial) 60 mg IM X1 ONE Stop: 03/23/25 17:07 Last Admin: 03/23/25 17:20 Dose: 60 mg Documented By: RAVINDRA Metoclopramide HCl (Metoclopramide 5 Mg Tablet) 10 mg PO X1 ONE Stop: 03/23/25 17:07 Last Admin: 03/23/25 17:19 Dose: 10 mg Documented By: RAVINDRA Ondansetron HCl (Ondansetron Odt 4 Mg Tabrap) 4 mg PO X1 ONE; Protocol Stop: 03/23/25 15:21 Last Admin: 03/23/25 16:28 Dose: 4 mg Documented By: RAVINDRA Comments: med brought by pharmacy see mar Consultations Consultation(s) initiated? (list below): No Diagnosis Upper Respiratory Differential Diagnosis: upper respiratory infection, sinusitis, viral infection and other (uti) Most likely diagnosis given after review of the tests above:: see note Admission Indicated Admission indicated?: not indicated Admission Request Was there a request for admission?: No Disposition Plan Disposition Plan: Discharge Discharge Attestation Discharge Attestation: The patient and all family members were given an opportunity to ask questions and understood the discharge instructions. Discharge instructions specifically effects, indications for sooner follow up or return to the emergency department, and the expected course of current diagnosis. Patient condition: Stable Discharge Plan Plan Patient Disposition: HOME (Self Care) Patient condition on transfer: Stable Prescriptions/Referrals Prescriptions/Med Rec: New ibuprofen 800 mg tablet 800 mg PO Q6H PRN (Reason: pain) Qty: 14 0RF No Action gabapentin 800 mg tablet 800 mg PO TID Patient Comments: take 1 tablet by mouth three times a day medroxyprogesterone [Provera] 10 mg tablet 10 mg PO QDAY Qty: 7 0RF benzonatate 100 mg capsule 100 mg PO TID Qty: 14 0RF ibuprofen 600 mg tablet 600 mg PO Q6H Qty: 30 0RF Referrals: Orestes Wilson MD [Primary Care Provider, Family Practice] - In 1 week Problem List Clinical Impression: URI due to influenza, UTI (urinary tract infection) Patient/Caregiver Discharge Instructions Discharge Activity: activity as tolerated Education Materials: ED CYSTITIS Female Adult Additional Instructions: please follow-up with urine culture with primary provider. Come back to the emergency room symptoms change or worsen Print Language: Uruguayan Stand Alone Forms: Rachel Award Info., Patient Portal Info Letter DEB/TIMBO Supervising Physician RBOIN Supervising Physician: anibal
[2025-03-23 15:01] LABS: Collection Type, Urine Voided
[2025-03-23 15:30] LABS: Bacteria,Urine 1+; Bilirubin,Urine Negative (Negative); Blood,Urine 1+ (Negative); Clarity,Urine Clear (Clear/Hazy); Color,Urine Lt-Yellow (Lt Yel-Yel); Glucose, Urine Negative (Negative); Ketones,Urine Negative (Negative); Leukocyte Esterase,Urine Negative (Negative); Nitrite,Urine Positive (Negative); PH,Urine 6.0 (5.0-7.0); Protein,Urine Negative (Neg - Trace); RBC,Urine 1 /hpf (0-3); Specific Gravity,Urine 1.019 (1.001-1.035); Squamous Epithelial Cell,Urine 4 /hpf (0-5); Urobilinogen,Urine Negative mg/dL (0.0-1.0); WBC,Urine 6 /hpf (0-5)
[2025-03-23 15:43] LABS: Culture Indicated,Urine Yes; HCG Qualitative,Urine Negative
[2025-03-23] MEDS: ONDANSETRON ODT 4 MG TABRAP PO (16:28)
[2025-03-23] MEDS: ACETAMINOPHEN 500 MG TABLET 1000 MG PO (16:29)
[2025-03-23] MEDS: METOCLOPRAMIDE 5 MG TABLET 10 MG PO (17:19)
[2025-03-23] MEDS: KETOROLAC INJ 60 MG/2 ML VIAL IM (17:20)
== END 2025-03-23 18:37 | disposition home or self-care (01) ==
PROVIDERS: Nurse Practitioner Family; Emergency Provider Family Medicine; PCP Family Medicine; Referring Provider Obstetrics & Gynecology
DX: N39.0 Urinary tract infection, site not specified (principal); J10.1 Influenza due to other identified influenza virus with other respiratory manifestations; F17.210 Nicotine dependence, cigarettes, uncomplicated
CPT/HCPCS: 81001; 81025; 87077; 87086; 87186; 96372; 99283; J0696; J1885; J3490; Q0162; A9270

== ENCOUNTER 2025-03-30 14:29 | Emergency (ER) | payer MEDICAID, SELFPAY ==
[2025-03-30 14:30] VITALS: BMI 28.3
[2025-03-30 14:47] VITALS: BP 109/74; PULSE 74; RESP 16; TEMP 36.9; O2SAT 97
--- NOTE | 2025-03-30 14:52 | EDNOTE_ITS ---
ED OB Contraction Preg RMI/HPI General Chief complaint: Abdominal Pain Stated complaint: RLQ ABD CRAMPING; +POSITIVE Time Seen by Provider: 03/30/25 14:47 Source: patient Arrival date/time: 03/30/25 14:29 39-year-old female with no known medical history presents to the emergency room with a chief complaint of right lower abdominal cramping x 1 day. Patient states she has had multiple positive test but due to her irregular menses does not know when her last menstrual period was. Mode of arrival: ambulatory Limitations: no limitations Related Data Home Medications ?Medication ?Instructions ?Recorded ?Confirmed gabapentin 800 mg tablet 800 mg PO TID 05/21/2310/31 Previous Rx's ?Medication ?Instructions ?Recorded medroxyprogesterone 10 mg tablet 10 mg PO QDAY #7 tabs 09/18/23 (Provera) benzonatate 100 mg capsule 100 mg PO TID #14 caps 10/04 10/26 ibuprofen 600 mg tablet 600 mg PO Q6H #30 tabs 10/29 ibuprofen 800 mg tablet 800 mg PO Q6H PRN pain #14 t abs 03/23/25 Allergies Allergy/AdvReac Type Severity Reaction Status Date / Time Sulfa (Sulfonamide Allergy Severe Hives Verified 03/30/25 14:33 Antibiotics) Review of Systems Review of Systems Systems Reviewed: All systems reviewed, normal except as documented Constitutional Constitutional: Reports system reviewed and no additional complaints, except as documented, Denies fatigue, Denies fever(s), Denies headache(s) and Denies weakness Eyes Eyes: Reports system reviewed and no additional complaints, except as do cumented, Denies blurry vision and Denies change in vision ENT Ears, Nose, Mouth, and Throat: Reports system reviewed and no additional complaints, except as documented, Denies otalgia, Denies headache(s), Denies nasal congestion, Denies throat swelling and Denies vertigo Cardiovascular Cardiovascular: Reports system reviewed and no additional complaints, except as documented, Denies chest pain, Denies dyspnea and Denies dyspnea on exertion Respiratory Respiratory: Reports system reviewed and no additional complaints, except as documented, Denies chest congestion, Denies cough, Denies dyspnea, Denies dyspnea on exertion and Denies wheezing Gastrointestinal Gastrointestinal: Reports system reviewed and no additional complaints, except as documented, Denies abdominal pain, Denies cramping, Denies nausea and Denies vomiting Genitourinary Genitourinary: Reports system reviewed and no additional complaints, except as documented, Denies abnormal vaginal bleeding and Denies dysuria Musculoskeletal Musculoskeletal: Reports system reviewed and no additional complaints, except as documented and Denies back pain Integumentary/Breasts Skin/Breast: Reports system reviewed and no additional complaints, except as documented and Denies wounds Neurologic Neurologic: Reports system reviewed and no additional complaints, except as documented, Denies confusion, Denies headache(s), Denies lack of coordination, Denies vertigo and Denies weakness Psychiatric Psychiatric: Reports system reviewed and no additional complaints, except as documented, Denies anxiety, Denies confusion, Denies depression, Denies paranoia, Denies suicidal ideation and Denies tactile hallucinations Endocrine Endocrine: Reports system reviewed and no additional complaints, except as documented and Denies fatigue Hematologic/Lymphatic Hematologic/Lymphatic: Reports system reviewed and no additional complaints, except as documented and Denies lymphadenopathy Allergic/Immunologic Allergic/Immunologic: Reports system reviewed and no additional complaints, except as documented, Denies throat swelling, Denies urticaria and Denies wheezing Past Medical History Past Medical History NEUROLOGIC: Positive Neurological Disorders and Migraine CARDIAC: Negative Cardiac Disorders or Congestive Heart Failure RESPIRATORY: Negative Chronic Obstructive Pulmonary Disease (COPD) GASTROINTESTINAL: Positive Gastrointestinal Disorders and Obesity GENITOURINARY: Negative Genitourinary Disorders or Renal Disease REPRODUCTIVE: Positive Previous Pregnancies MUSCULOSKELETAL: Negative Musculoskeletal Disorders ENDOCRINE: Negative Endocrine Disorders, Diabetes Mellitus Type 1 or Diabetes Mellitus Type 2 HEMATOLOGIC: Negative Blood Disorders PSYCHO/SOCIAL: Positive Recreational Drug Use OTHER HISTORY: Positive Hospitalization (acute kidney problems), Shingles and Chicken Pox; Negative Blood Transfusions or Cancer Family History FAMILY HISTORY: Positive Family Cancer; Negative Family Psychiatric Problems, Family Respiratory Disorders, Family Cardiac Disorders, Family Gastrointestinal Problems, Family Surgery or Family Anesthesia Reaction Social History SMOKING STATUS: Current every day smoker SECOND HAND EXPOSURE: No ED Exam General Limitations: Present no limitations General appearance: Present alert and in no apparent distress Head Head exam: Present atraumatic Eye Eye exam: Present normal appearance, PERRL and EOMI ENT ENT exam: Present normal exam, normal oropharynx and mucous membranes moist Neck Neck exam: Present normal inspection, full ROM and trachea midline Chest Chest inspection: Present normal inspection and symmetric chest wall rise Respiratory Respiratory exam: Present normal lung sounds bilaterally Cardiovascular Cardiovascular exam: Present regular rate, normal rhythm and normal heart sounds Abdominal Exam Abdominal exam: Present soft and normal bowel sounds Abdominal tenderness: Present RLQ and mild Extremities Exam Extremities exam: Present normal inspection and full ROM Back Exam Back exam: Present normal inspection and full ROM Neurological Exam Neurological exam: Present alert, oriented X3 and CN II-XII intact Psychiatric Psychiatric exam: Present normal affect and normal mood Skin Skin exam: Present warm, dry, intact and normal color Course Quality Measures none Orders Category Date Time Status US OB <= 14 weeks fetus Stat Exams 03/30/25 14:52 Completed ABO/RH Type Stat Lab 03/30/25 14:58 Completed Beta HCG,Quantitative Stat Lab 03/30/25 14:58 Completed CBC Stat Lab 03/30/25 14:58 Completed CMP [Comprehensive Metabolic Panel] Stat Lab 03/30/25 14:58 Completed Vital Signs Vital signs: Vital Signs Temperature 98.5 F 03/30/25 14:47 Pulse Rate 74 03/30/25 14:47 Respiratory Rate 16 03/30/25 14:47 Blood Pressure 109/74 03/30/25 14:47 Pulse Oximetry (%) 97 03/30/25 14:47 Oxygen Delivery Method Room Air 03/30/25 14:47 OB/Uterine Contractions MDM Narrative MDM Narrative:: 39-year-old female with no known medical history presents to the emergency room with a chief complaint of right lower abdominal cramping x 1 day. Patient states she has had multiple positive test but due to her irregular menses does not know when her last menstrual period was. Patient is hemodynamically stable and in no apparent distress Physical examination shows some right lower abdominal cramping. Patient states she has had multiple positive test but does not know her last menstrual period. CBC CMP were completed and her hCG quant was 7. An ultrasound was completed and at this time is unable to visualize any intrauterine gestation sac. Given the patient's positive test can indicate that this is very early on . Patient was educated to return to the emergency room in 72 hours for repeat blood work Patient was discharged and educated to follow-up with primary care provider in the next 24 to 48 hours and return to the emergency room for any evidence of worsening signs or symptoms Patient data External records reviewed:: [facility] previous records Clinical information provided by:: patient Social determinants that could affect healthcare access:: none Patient has the following chronic illnesses:: No chronic illness How is presenting disease/condition affected by chronic disease/condition?: no chronic disease Evaluation data The following diagnostics were reviewed and interpreted by me:: lab results and radiology exam(s) Lab and/or radiology exams considered but not ordered:: Labs radiology exams considered and ordered Interpretation Summary: Ultrasound OB-Findings: The uterus measures 4.5 cm in AP diameter and its length is 7.6 cm. These dimensions are within normal limits the endometrium measures normal at 0.75 cm there is no evidence of a gestational sac in the endometrial cavity, and there are no abnormal collections of fluid or echogenic debris noted within the endometrial cavity, either. Both right and left ovaries have a normal size and configuration, there is normal color flow vascularity extending to both right and left ovaries. There is no evidence of any free fluid IMPRESSION: 1. The pelvic ultrasound is normal and there is no evidence of any gestational sac or fluid collection or echogenic debris noted anywhere in the endometrial cavity, which appears perfectly normal 2 both ovaries appear normal, the entire study is normal Medications / Prescriptions Medications or Prescriptions considered but not ordered:: No medication given Medication administrations:: No medication given Consultations Consultation(s) initiated? (list below): No Diagnosis OB Contractions Differential Diagnosis: other (Positive test/ectopic /abdominal cramping) Most likely diagnosis given after review of the tests above:: Positive test Admission Indicated Admission indicated?: not indicated Explain why admission is indicated or not indicated:: N/A Admission Request Was there a request for admission?: No Disposition Plan Disposition Plan: Discharge Discharge Attestation Discharge Attestation: The patient and all family members were given an opportunity to ask questions and understood the discharge instructions. Discharge instructions specifically effects, indications for sooner follow up or return to the emergency department, and the expected course of current diagnosis. Patient condition: Stable Discharge Plan Plan Patient Disposition: HOME (Self Care) Discharge Disposition comment: Stable Prescriptions/Referrals Prescriptions/Med Rec: No Action gabapentin 800 mg tablet 800 mg PO TID Patient Comments: take 1 tablet by mouth three times a day medroxyprogesterone [Provera] 10 mg tablet 10 mg PO QDAY Qty: 7 0RF benzonatate 100 mg capsule 100 mg PO TID Qty: 14 0RF ibuprofen 600 mg tablet 600 mg PO Q6H Qty: 30 0RF ibuprofen 800 mg tablet 800 mg PO Q6H PRN (Reason: pain) Qty: 14 0RF Referrals: Orestes Wilson MD [Primary Care Provider, Family Practice] - In 1 week Problem List Clinical Impression: Positive blood test Patient/Caregiver Discharge Instructions Additional Instructions: Please follow-up with your [employer] SUPERVISOR in the next 24 to 48 hours Your test today was positive but your quantitative levels were very low. This could mean it is a very early . At this time the ultrasound was unable to see any . You will need to return to the emergency room in 72 hours or follow-up with your primary care provider for repeat blood work and ultrasound Print Language: Yakut Stand Alone Forms: Rachel Award Info., Patient Portal Info Letter PA/MEDICAL BILLING MANAGER Supervising Physician PA/TIMBO Supervising Physician: Dr. Quezada
--- NOTE | 2025-03-30 14:52 | XR_ITS ---
Examination: Complete OB ultrasound, less than 14 weeks, transabdominal Date and time of exam: 03/30/2025 at 4:04 p.m. CLINICAL HISTORY: Right lower quadrant pain for 4 days Technique: Obstetrical ultrasound images less than 14 weeks performed via transabdominal imaging Findings: The uterus measures 4.5 cm in AP diameter and its length is 7.6 cm. These dimensions are within normal limits the endometrium measures normal at 0.75 cm there is no evidence of a gestational sac in the endometrial cavity, and there are no abnormal collections of fluid or echogenic debris noted within the endometrial cavity, either. Both right and left ovaries have a normal size and configuration, there is normal color flow vascularity extending to both right and left ovaries. There is no evidence of any free fluid IMPRESSION: 1. The pelvic ultrasound is normal and there is no evidence of any gestational sac or fluid collection or echogenic debris noted anywhere in the endometrial cavity, which appears perfectly normal 2 both ovaries appear normal, the entire study is normal .
[2025-03-30 15:24] LABS: Basophils # (Auto) 0.0 Thou/mm3 (0.0-0.2); Basophils % (Auto) 0 % (0-2.5); Eosinophils # (Auto) 0.0 Thou/mm3 (0.0-0.5); Eosinophils % (Auto) 0 % (0-10); Hematocrit 45.8 % (36.0-46.0); Hemoglobin 15.6 g/dL (12.0-16.0); Immature Granulocytes Auto 0.02 Thou/mm3 (0.00-0.00); Lymphocytes # (Auto) 2.0 Thou/mm3 (1.0-4.8); Lymphocytes % (Auto) 29 % (10-50); Mean Corpuscular HGB Conc 34.1 g/dl (31.0-37.0); Mean Corpuscular Hemoglobin 31.5 pg (25.0-35.0); Mean Corpuscular Volume 92 fL (80-100); Monocytes # (Auto) 0.4 Thou/mm3 (0.0-0.8); Monocytes % (Auto) 6 % (0-12); Neutrophils # (Auto) 4.4 Thou/mm3 (1.8-7.7); Neutrophils % (Auto) 64 % (37-80); Nucleated Red Blood Cell # 0.00 Thou/mm3 (0.00-0.00); Nucleated Red Blood Cell % 0 /100 WBC (0); Platelet Count 268 Thou/mm3 (140-440); RDW Standard Deviation 40.6 fL (36.4-46.3); Red Blood Count 4.96 Miln/mm3 (4.00-5.20); White Blood Count 6.9 Thou/mm3 (3.6-11.0)
[2025-03-30 15:44] LABS: Alanine Aminotransferase 71 U/L (10-49); Albumin, Serum 4.8 gm/dL (3.5-5.0); Albumin/Globulin Ratio 1.6 (1.2-2.2); Alkaline Phosphatase 72 U/L (46-116); Anion Gap 11 (7-16); Aspartate Amino Transferase 40 U/L (0-34); BUN/Creatinine Ratio 12 Ratio (12-20); Beta HCG,Quantitative 7 mIU/mL (<5.0); Bilirubin,Total 0.8 mg/dL (0.3-1.2); Blood Urea Nitrogen 11 mg/dL (9-23); Calcium 9.4 mg/dL (8.3-10.6); Calcium (Corrected) 9.4 mg/dL (8.5-10.1); Carbon Dioxide 28.1 mMol/L (20.0-31.0); Chloride 104 mMol/L (98-107); Creatinine (Component) 0.9 mg/dL (0.6-1.3); Estimated Creatinine Clearance 78.5 mL/min (>60); Globulin 3.0 gm/dL (2.3-3.5); Glucose 117 mg/dL (74-106); Osmolality,Calculated 285 (275-295); Potassium 4.0 mMol/L (3.4-5.1); Sodium 143 mMol/L (136-145); Total Protein 7.8 gm/dL (5.7-8.2); eGFR > 60 See Note
== END 2025-03-30 16:51 | disposition home or self-care (01) ==
PROVIDERS: Nurse Practitioner Family; Emergency Provider Emergency Medicine; PCP Family Medicine
DX: O26.899 Other specified pregnancy related conditions, unspecified trimester (principal); R10.31 Right lower quadrant pain; Z3A.00 Weeks of gestation of pregnancy not specified
CPT/HCPCS: 36415; 76801; 80053; 81001; 84702; 85025; 86900; 86901; 99283

== ENCOUNTER 2025-04-02 13:35 | Emergency (ER) | payer MEDICAID, SELFPAY ==
[2025-04-02 14:07] VITALS: BP 110/72; PULSE 96; RESP 18; TEMP 36.9; O2SAT 95; BMI 26.2
--- NOTE | 2025-04-02 14:18 | PD.EDPREG ---
ED OB Contraction Preg RMI/HPI General Chief complaint: General Adult/Misc Complain Stated complaint: RETURNED FOR F/U TEST Time Seen by Provider: 04/02/25 14:17 Source: patient Arrival date/time: 04/02/25 13:35 39-year-old female with no known medical history presents to the emergency room for a follow-up on a test results Mode of arrival: ambulatory Limitations: no limitations Related Data Home Medications ?Medication ?Instructions ?Recorded ?Confirmed gabapentin 800 mg tablet 800 mg PO TID 05/21/23 10/31/24 Previous Rx's ?Medication ?Instructions ?Recorded medroxyprogesterone 10 mg tablet 10 mg PO QDAY #7 tabs 09/18/23 (Provera) benzonatate 100 mg capsule 100 mg PO TID #14 caps 10/30/23 ibuprofen 600 mg tablet 600 mg PO Q6H #30 tabs 10/30/23 ibuprofen 800 mg tablet 800 mg PO Q6H PRN pain #14 tabs 03/23/25 Allergies Allergy/AdvReac Type Severity Reaction Status Date / Time Sulfa (Sulfonamide Allergy Severe Hives Verified 04/02/25 13:38 Antibiotics) Review of Systems Review of Systems Systems Reviewed: All systems reviewed, normal except as documented Constitutional Constitutional: Reports system reviewed and no additional complaints, except as documented, Denies fatigue, Denies fever(s), Denies headache(s) and Denies weakness Eyes Eyes: Reports system reviewed and no additional complaints, except as documented, Denies blurry vision and Denies change in vision ENT Ears, Nose, Mouth, and Throat: Reports system reviewed and no additional complaints, except as documented, Denies otalgia, Denies headache(s), Denies nasal congestion, Denies throat swelling and Denies vertigo Cardiovascular Cardiovascular: Reports system reviewed and no additional complaints, except as documented, Denies chest pain, Denies dyspnea and Denies dyspnea on exertion Respiratory Respiratory: Reports system reviewed and no additional complaints, except as documented, Denies chest congestion, Denies cough, Denies dyspnea, Denies dyspnea on exertion and Denies wheezing Gastrointestinal Gastrointestinal: Reports system reviewed and no additional complaints, except as documented, Denies abdominal pain, Denies cramping, Denies nausea and Denies vomiting Genitourinary Genitourinary: Reports system reviewed and no additional complaints, except as documented Musculoskeletal Musculoskeletal: Reports system reviewed and no additional complaints, except as documented and Denies back pain Integumentary/Breasts Skin/Breast: Reports system reviewed and no additional complaints, except as documented and Denies wounds Neurologic Neurologic: Reports system reviewed and no additional complaints, except as documented, Denies confusion, Denies headache(s), Denies lack of coordination, Denies vertigo and Denies weakness Psychiatric Psychiatric: Reports system reviewed and no additional complaints, except as documented, Denies anxiety, Denies confusion, Denies depression, Denies paranoia, Denies suicidal ideation and Denies tactile hallucinations Endocrine Endocrine: Reports system reviewed and no additional complaints, except as documented and Denies fatigue Hematologic/Lymphatic Hematologic/Lymphatic: Reports system reviewed and no additional complaints, except as documented and Denies lymphadenopathy Allergic/Immunologic Allergic/Immunologic: Reports system reviewed and no additional complaints, except as documented, Denies throat swelling, Denies urticaria and Denies wheezing Past Medical History Past Medical History NEUROLOGIC: Positive Neurological Disorders and Migraine CARDIAC: Negative Cardiac Disorders or Congestive Heart Failure RESPIRATORY: Negative Chronic Obstructive Pulmonary Disease (COPD) GASTROINTESTINAL: Positive Gastrointestinal Disorders and Obesity GENITOURINARY: Negative Genitourinary Disorders or Renal Disease REPRODUCTIVE: Positive Previous Pregnancies MUSCULOSKELETAL: Negative Musculoskeletal Disorders ENDOCRINE: Negative Endocrine Disorders, Diabetes Mellitus Type 1 or Diabetes Mellitus Type 2 HEMATOLOGIC: Negative Blood Disorders PSYCHO/SOCIAL: Positive Recreational Drug Use OTHER HISTORY: Positive Hospitalization (acute kidney problems), Shingles and Chicken Pox; Negative Blood Transfusions or Cancer Family History FAMILY HISTORY: Positive Family Cancer; Negative Family Psychiatric Problems, Family Respiratory Disorders, Family Cardiac Disorders, Family Gastrointestinal Problems, Family Surgery or Family Anesthesia Reaction Social History SMOKING STATUS: Current every day smoker SECOND HAND EXPOSURE: No ED Exam General Limitations: Present no limitations General appearance: Present alert and in no apparent distress Head Head exam: Present atraumatic Eye Eye exam: Present normal appearance, PERRL and EOMI ENT ENT exam: Present normal exam, normal oropharynx and mucous membranes moist Neck Neck exam: Present normal inspection, full ROM and trachea midline Chest Chest inspection: Present normal inspection and symmetric chest wall rise Respiratory Respiratory exam: Present normal lung sounds bilaterally Cardiovascular Cardiovascular exam: Present regular rate, normal rhythm and normal heart sounds Abdominal Exam Abdominal exam: Present soft and normal bowel sounds Extremities Exam Extremities exam: Present normal inspection and full ROM Back Exam Back exam: Present normal inspection and full ROM Neurological Exam Neurological exam: Present alert, oriented X3 and CN II-XII intact Psychiatric Psychiatric exam: Present normal affect and normal mood Skin Skin exam: Present warm, dry, intact and normal color Course Quality Measures none Orders Category Date Time Status ABO/RH Type Stat Lab 04/02/25 14:44 Completed Beta HCG,Quantitative Stat Lab 04/02/25 14:44 Completed CBC Stat Lab 04/02/25 14:44 Completed CMP [Comprehensive Metabolic Panel] Stat Lab 04/02/25 14:44 Completed UA [Urinalysis] Stat Lab 04/02/25 15:18 Completed Vital Signs Vital signs: Vital Signs Temperature 98.4 F 04/02/25 14:07 Pulse Rate 96 04/02/25 14:07 Respiratory Rate 18 04/02/25 14:07 Blood Pressure 110/72 04/02/25 14:07 Pulse Oximetry (%) 95 04/02/25 14:07 Oxygen Delivery Method Room Air 04/02/25 14:07 OB/Uterine Contractions MDM Narrative MDM Narrative:: 39-year-old female with no known medical history presents to the emergency room for a follow-up on a test results Patient is hemodynamically stable and in no apparent distress Physical examination shows a soft nontender abdomen. Patient states she is no longer getting positive test at home Patient CBC CMP were within normal limits. 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 TECHNOLOGIST return to the emergency room for any evidence of worsening signs or symptoms Patient data External records reviewed:: [facility] previous records Clinical information provided by:: patient Social determinants that could affect healthcare access:: none Patient has the following chronic illnesses:: No chronic illness How is presenting disease/condition affected by chronic disease/condition?: no chronic disease Evaluation data The following diagnostics were reviewed and interpreted by me:: lab results and radiology exam(s) Lab and/or radiology exams considered but not ordered:: Labs and radiology exams considered and ordered Interpretation Summary: N/A Medications / Prescriptions Medications or Prescriptions considered but not ordered:: No medication given Medication administrations:: No medication given Consultations Consultation(s) initiated? (list below): No Diagnosis OB Contractions Differential Diagnosis: other (Encounter for test) Most likely diagnosis given after review of the tests above:: Encounter for test Admission Indicated Admission indicated?: not indicated Explain why admission is indicated or not indicated:: N/A Admission Request Was there a request for admission?: No Disposition Plan Disposition Plan: Discharge Discharge Attestation Discharge Attestation: The patient and all family members were given an opportunity to ask questions and understood the discharge instructions. Discharge instructions specifically effects, indications for sooner follow up or return to the emergency department, and the expected course of current diagnosis. Patient condition: Stable Discharge Plan Plan Patient Disposition: HOME (Self Care) Discharge Disposition comment: Stable Prescriptions/Referrals Prescriptions/Med Rec: No Action gabapentin 800 mg tablet 800 mg PO TID Patient Comments: take 1 tablet by mouth three times a day medroxyprogesterone [Provera] 10 mg tablet 10 mg PO QDAY Qty: 7 0RF benzonatate 100 mg capsule 100 mg PO TID Qty: 14 0RF ibuprofen 600 mg tablet 600 mg PO Q6H Qty: 30 0RF ibuprofen 800 mg tablet 800 mg PO Q6H PRN (Reason: pain) Qty: 14 0RF Referrals: Orestes Wilson MD [Primary Care Provider, Family Practice] - In 1 week Problem List Clinical Impression: Encounter for test Patient/Caregiver Discharge Instructions Additional Instructions: Please follow-up with your primary care provider in the next 24 to 48 hours Your levels are unchanged from your test 3 days ago For any evidence of worsening signs or symptoms return the emergency room immediately Print Language: [place] Citizen Stand Alone Forms: Rachel Award Info., Work/School Release, Patient Portal Info Letter
[2025-04-02 15:03] LABS: Basophils # (Auto) 0.0 Thou/mm3 (0.0-0.2); Basophils % (Auto) 0 % (0-2.5); Eosinophils # (Auto) 0.1 Thou/mm3 (0.0-0.5); Eosinophils % (Auto) 1 % (0-10); Hematocrit 45.1 % (36.0-46.0); Hemoglobin 15.2 g/dL (12.0-16.0); Immature Granulocytes Auto 0.02 Thou/mm3 (0.00-0.00); Lymphocytes # (Auto) 2.0 Thou/mm3 (1.0-4.8); Lymphocytes % (Auto) 29 % (10-50); Mean Corpuscular HGB Conc 33.7 g/dl (31.0-37.0); Mean Corpuscular Hemoglobin 31.3 pg (25.0-35.0); Mean Corpuscular Volume 93 fL (80-100); Monocytes # (Auto) 0.5 Thou/mm3 (0.0-0.8); Monocytes % (Auto) 7 % (0-12); Neutrophils # (Auto) 4.3 Thou/mm3 (1.8-7.7); Neutrophils % (Auto) 62 % (37-80); Nucleated Red Blood Cell # 0.00 Thou/mm3 (0.00-0.00); Nucleated Red Blood Cell % 0 /100 WBC (0); Platelet Count 305 Thou/mm3 (140-440); RDW Standard Deviation 41.6 fL (36.4-46.3); Red Blood Count 4.85 Miln/mm3 (4.00-5.20); White Blood Count 6.9 Thou/mm3 (3.6-11.0)
[2025-04-02 15:22] LABS: Collection Type, Urine Clean Catch
[2025-04-02 15:28] LABS: Bilirubin,Urine Negative (Negative); Blood,Urine Negative (Negative); Clarity,Urine Clear (Clear/Hazy); Color,Urine Yellow (Lt Yel-Yel); Glucose, Urine Negative (Negative); Ketones,Urine Negative (Negative); Leukocyte Esterase,Urine Negative (Negative); Nitrite,Urine Negative (Negative); PH,Urine 6.0 (5.0-7.0); Protein,Urine Negative (Neg - Trace); RBC,Urine 1 /hpf (0-3); Specific Gravity,Urine 1.020 (1.001-1.035); Squamous Epithelial Cell,Urine 2 /hpf (0-5); Urobilinogen,Urine 2.0 mg/dL (0.0-1.0); WBC,Urine 2 /hpf (0-5)
[2025-04-02 15:37] LABS: Alanine Aminotransferase 39 U/L (10-49); Albumin, Serum 4.7 gm/dL (3.5-5.0); Albumin/Globulin Ratio 1.7 (1.2-2.2); Alkaline Phosphatase 72 U/L (46-116); Anion Gap 7 (7-16); Aspartate Amino Transferase 29 U/L (0-34); BUN/Creatinine Ratio 13 Ratio (12-20); Beta HCG,Quantitative 7 mIU/mL (<5.0); Bilirubin,Total 0.6 mg/dL (0.3-1.2); Blood Urea Nitrogen 10 mg/dL (9-23); Calcium 9.5 mg/dL (8.3-10.6); Calcium (Corrected) 9.5 mg/dL (8.5-10.1); Carbon Dioxide 29.8 mMol/L (20.0-31.0); Chloride 107 mMol/L (98-107); Creatinine (Component) 0.8 mg/dL (0.6-1.3); Estimated Creatinine Clearance 85.2 mL/min (>60); Globulin 2.7 gm/dL (2.3-3.5); Glucose 87 mg/dL (74-106); Osmolality,Calculated 284 (275-295); Potassium 4.6 mMol/L (3.4-5.1); Sodium 144 mMol/L (136-145); Total Protein 7.4 gm/dL (5.7-8.2); eGFR > 60 See Note
== END 2025-04-02 16:40 | disposition home or self-care (01) ==
PROVIDERS: Emergency Provider Nurse Practitioner Family; PCP Family Medicine
DX: Z32.00 Encounter for pregnancy test, result unknown (principal)
CPT/HCPCS: 36415; 80053; 81001; 84702; 85025; 86900; 86901; 99282